=== PATIENT | male | born 1960 | race African-American/Black ===

== ENCOUNTER 2023-07-31 17:02 | Emergency (ER) | payer MEDICAID ==
[~2023-07-31] VITALS: Ht 177.8 cm; Wt 118.0 kg
[2023-07-31 17:05] VITALS: O2SAT 100
[2023-07-31 17:42] VITALS: BP 160/90; PULSE 82; RESP 20; TEMP 98.2
[2023-07-31 17:43] LABS: BASOPHILS % 0.5 % (0.0-2.0); DIFFERENTIAL COMMENT 0; EOSINOPHILS % 2.9 % (0.0-5.0); HEMATOCRIT. 29.2 % (42.0-52.0); HEMOGLOBIN. 9.7 g/dL (14.0-18.0); LYMPHOCYTES % 25.2 % (20.0-50.0); MEAN CORPUSCULAR HEMOGLOBIN 23.5 pg (28.0-32.0); MEAN CORPUSCULAR HGB CONC 33.2 g/dL (31.0-37.0); MEAN CORPUSCULAR VOLUME 70.7 fL (80.0-94.0); MONOCYTES % 9.7 % (2.0-8.0); NEUTROPHILS % 61.7 % (40.0-76.0); PLATELET 255 x1000/uL (130-400); RED BLOOD CELL COUNT 4.14 mill/uL (4.7-6.1); RED CELL DISTRIBUTION WIDTH 16.8 % (11.6-14.6)
[2023-07-31 17:54] LABS: INR 0.9; PROTHROMBIN TIME 10.4 sec (9.6-11.0)
[2023-07-31 18:06] LABS: CARBON DIOXIDE 30 mEq/L (21-32); CHLORIDE 101 mEq/L (98-107); POTASSIUM 3.8 mEq/L (3.5-5.1); SODIUM 136 mEq/L (136-145)
[2023-07-31 18:11] LABS: CREATININE 1.1 mg/dL (0.6-1.3)
[2023-07-31 18:12] LABS: GLUCOSE 260 mg/dL (70-105); UREA NITROGEN BLOOD 13 mg/dL (9-23)
[2023-07-31 18:16] LABS: ETHANOL BLOOD < 10 mg/dL (<10)
[2023-07-31] MEDS ORDERED: ASPIRIN 325MG EC TABLET PO ONE (19:00)
[2023-07-31] MEDS ORDERED: IOHEXOL-350 100 ML BOTTLE ONE (20:40)
[2023-07-31] MEDS ORDERED: GUAIFENESIN 200MG/10ML SUGAR FREE UDC PO PRN (22:15)
[2023-07-31] MEDS ORDERED: IPRATROPIUM/ALBUTEROL 0.5-3(2.5)MG/3ML NEB HHN PRN (22:15)
[2023-07-31] MEDS ORDERED: DOCUSATE SODIUM 100MG CAPSULE PO PRN (22:15)
[2023-07-31] MEDS ORDERED: ACETAMINOPHEN 325MG TABLET PO PRN (22:15)
[2023-07-31] MEDS ORDERED: MAGNESIUM/ALUMINUM HYDROXIDE/SIMETHICONE 30ML UDC PO PRN (22:15)
== END 2023-07-31 21:30 | disposition left against medical advice (07) ==
LOC: ER 17:02 → EDBEDREQTM 19:09 → EDBEDREQ 19:09 → ER 21:30
DX: I63.9 Cerebral infarction, unspecified (principal); E11.9 Type 2 diabetes mellitus without complications; I10 Essential (primary) hypertension; F12.10 Cannabis abuse, uncomplicated; F17.210 Nicotine dependence, cigarettes, uncomplicated
CPT/HCPCS: 80048; 80320; 82962; 85025; 85610; 85730; 36415; 71045; 70496; 70498; 70450; 93005; 99291; Q9967; G0480

== ENCOUNTER 2023-08-01 10:27 | Inpatient (IN) | payer MEDICAID ==
[~2023-08-01] VITALS: Ht 152.4 cm; Wt 72.1 kg
[2023-08-01] MEDS ORDERED: CLOPIDOGREL 75MG TABLET PO ONE (11:00)
[2023-08-01 11:08] LABS: BASOPHILS % 0.4 % (0.0-2.0); DIFFERENTIAL COMMENT 0; EOSINOPHILS % 1.8 % (0.0-5.0); HEMATOCRIT. 29.5 % (42.0-52.0); HEMOGLOBIN. 9.6 g/dL (14.0-18.0); LYMPHOCYTES % 14.8 % (20.0-50.0); MEAN CORPUSCULAR HEMOGLOBIN 23.4 pg (28.0-32.0); MEAN CORPUSCULAR HGB CONC 32.7 g/dL (31.0-37.0); MEAN CORPUSCULAR VOLUME 71.6 fL (80.0-94.0); MEAN PLATELET VOLUME 7.6 fl (7.4-10.4); MONOCYTES % 6.9 % (2.0-8.0); NEUTROPHILS % 76.1 % (40.0-76.0); PLATELET 228 x1000/uL (130-400); RED BLOOD CELL COUNT 4.12 mill/uL (4.7-6.1); RED CELL DISTRIBUTION WIDTH 16.7 % (11.6-14.6); WHITE BLOOD COUNT 7.1 x1000/uL (4.5-11.0)
[2023-08-01] MEDS: CLOPIDOGREL 75MG TABLET PO NR (11:18)
[2023-08-01] MEDS: ATORVASTATIN CALCIUM 40MG TABLET PO SCH (11:18)
[2023-08-01 11:29] LABS: CHLORIDE 101 mEq/L (98-107); POTASSIUM 3.9 mEq/L (3.5-5.1); SODIUM 133 mEq/L (136-145)
[2023-08-01 11:30] LABS: CALCIUM 8.8 mg/dL (8.7-10.4); CARBON DIOXIDE 23 mEq/L (21-32)
[2023-08-01 11:32] LABS: PROTHROMBIN TIME 10.8 sec (9.6-11.0)
[2023-08-01 11:35] LABS: CREATININE 0.9 mg/dL (0.6-1.3); GLUCOSE 243 mg/dL (70-105); UREA NITROGEN BLOOD 9 mg/dL (9-23)
[2023-08-01 11:38] LABS: ALANINE AMINOTRANSFERASE 27 IU/L (10-49); ASPARTATE AMINOTRANSFERASE 30 IU/L (<34); BILIRUBIN DIRECT 0.2 mg/dL (<=3.0); BILIRUBIN TOTAL 0.6 mg/dL (0.1-1.0); PROTEIN TOTAL 6.8 g/dL (6.0-8.3)
[2023-08-01 11:43] LABS: ETHANOL BLOOD < 10 mg/dL (<10); TROPONIN I HIGH SENSITIVITY < 4 ng/L (3.0-53)
[2023-08-01] MEDS ORDERED: ONDANSETRON HCL 4MG/2ML INJ IV PRN (14:45)
[2023-08-01] MEDS ORDERED: DEXTROSE 50% WATER 50ML SYRINGE IV PRN (14:45)
[2023-08-01] MEDS ORDERED: MAGNESIUM/ALUMINUM HYDROXIDE/SIMETHICONE 30ML UDC PO PRN (14:45)
[2023-08-01] MEDS ORDERED: DOCUSATE SODIUM 100MG CAPSULE PO PRN (14:45)
[2023-08-01] MEDS ORDERED: ACETAMINOPHEN 325MG TABLET PO PRN (14:45)
[2023-08-01] MEDS ORDERED: IPRATROPIUM/ALBUTEROL 0.5-3(2.5)MG/3ML NEB HHN PRN (14:45)
[2023-08-01] MEDS: BLOOD SUGAR DIAGNOSTIC STRIP TEST SCH (16:45)
[2023-08-01] MEDS: INSULIN LISPRO 100 UNITS/ML SUBCUT SCH (17:40)
[2023-08-01 18:45] VITALS: BP 161/86; PULSE 71; RESP 20; TEMP 98
[2023-08-01] MEDS: PANTOPRAZOLE SODIUM 40 MG/VIAL IV SCH (19:50)
[2023-08-01 20:00] VITALS: BP 151/83; PULSE 72; RESP 20; TEMP 99
[2023-08-02 03:33] LABS: CLARITY URINE CLEAR (CLEAR); COLOR URINE YELLOW (YELLOW); GLUCOSE URINE NEGATIVE (NEGATIVE); KETONES URINE TRACE (NEGATIVE); LEUKOCYTE ESTERASE URINE NEGATIVE (NEGATIVE); NITRITE URINE NEGATIVE (NEGATIVE); OCCULT BLOOD URINE NEGATIVE (NEGATIVE); PROTEIN URINE 1+ (NEGATIVE); SPECIFIC GRAVITY URINE 1.012 (1.005-1.030)
[2023-08-02 03:40] LABS: *AMPHETAMINES SCREEN URINE NEGATIVE (NEGATIVE); *BARBITURATES SCREEN URINE NEGATIVE (NEGATIVE); *BENZODIAZEPINES SCREEN URINE NEGATIVE (NEGATIVE); *COCAINE SCREEN URINE NEGATIVE (NEGATIVE); METHADONE URINE SCREEN NEGATIVE (NEGATIVE)
[2023-08-02 03:41] LABS: CANNABINOID URINE SCREEN PRESUMPTIVE POSITIVE (NEGATIVE); ECSTASY MDMA SCREEN URINE NEGATIVE (NEGATIVE); OPIATES URINE SCREEN NEGATIVE (NEGATIVE); PHENCYCLIDINE URINE SCREEN NEGATIVE (NEGATIVE)
[2023-08-02 03:53] LABS: BACTERIA URINE NONE SEEN; RBC URINE 0-2 /hpf (0-2); SQUAMOUS EPITHELIAL CELL URINE FEW /lpf (RARE/1+); WBC URINE 0-2 /hpf (0-2)
[2023-08-02 06:28] LABS: CHLORIDE 104 mEq/L (98-107); POTASSIUM 3.5 mEq/L (3.5-5.1); SODIUM 138 mEq/L (136-145)
[2023-08-02 06:29] LABS: CALCIUM 9.3 mg/dL (8.7-10.4); CARBON DIOXIDE 27 mEq/L (21-32)
[2023-08-02 06:34] LABS: GLUCOSE 135 mg/dL (70-105); UREA NITROGEN BLOOD 9 mg/dL (9-23)
[2023-08-02 06:40] LABS: BASOPHILS % 0.5 % (0.0-2.0); DIFFERENTIAL COMMENT 0; EOSINOPHILS % 2.6 % (0.0-5.0); HEMOGLOBIN. 9.4 g/dL (14.0-18.0); LYMPHOCYTES % 21.9 % (20.0-50.0); MEAN CORPUSCULAR HGB CONC 32.3 g/dL (31.0-37.0); MONOCYTES % 8.2 % (2.0-8.0); NEUTROPHILS % 66.8 % (40.0-76.0); PLATELET 240 x1000/uL (130-400); RED BLOOD CELL COUNT 4.08 mill/uL (4.7-6.1); RED CELL DISTRIBUTION WIDTH 16.1 % (11.6-14.6)
[2023-08-02 08:00] VITALS: BP 152/72; PULSE 98; RESP 18; TEMP 98.6
[2023-08-02] MEDS: ACETAMINOPHEN 325MG TABLET PO PRN (10:03)
[2023-08-02 12:00] VITALS: BP 158/83; PULSE 64; RESP 18; TEMP 98.1
[2023-08-02 16:00] VITALS: BP 160/82; PULSE 75; RESP 18; TEMP 97.7
[2023-08-02 18:28] LABS: FOLIC ACID (FOLATE) SERUM > 20.00 ng/mL (>5.38); VITAMIN B12 SERUM 573 pg/mL (211-911)
[2023-08-02] MEDS: CLOPIDOGREL 75MG TABLET PO SCH (18:58)
[2023-08-02] MEDS: ASPIRIN 81MG TABLET PO SCH (18:58)
[2023-08-02 20:00] VITALS: BP 129/97; PULSE 70; RESP 18; TEMP 97.5
[2023-08-02] MEDS: ATORVASTATIN CALCIUM 40MG TABLET PO SCH (22:16)
[2023-08-03] VITALS: BP 135/80; PULSE 68; RESP 18; TEMP 97.9
[2023-08-03 07:20] LABS: BASOPHILS % 0.6 % (0.0-2.0); DIFFERENTIAL COMMENT 0; EOSINOPHILS % 3.8 % (0.0-5.0); HEMATOCRIT. 30.1 % (42.0-52.0); HEMOGLOBIN. 9.7 g/dL (14.0-18.0); LYMPHOCYTES % 26.4 % (20.0-50.0); MEAN CORPUSCULAR HEMOGLOBIN 22.9 pg (28.0-32.0); MEAN CORPUSCULAR HGB CONC 32.2 g/dL (31.0-37.0); MEAN CORPUSCULAR VOLUME 71.2 fL (80.0-94.0); MEAN PLATELET VOLUME 8.1 fl (7.4-10.4); MONOCYTES % 9.2 % (2.0-8.0); PLATELET 236 x1000/uL (130-400); RED BLOOD CELL COUNT 4.23 mill/uL (4.7-6.1); RED CELL DISTRIBUTION WIDTH 16.4 % (11.6-14.6); WHITE BLOOD COUNT 5.6 x1000/uL (4.5-11.0)
[2023-08-03 07:29] LABS: CHLORIDE 104 mEq/L (98-107); POTASSIUM 3.5 mEq/L (3.5-5.1); SODIUM 139 mEq/L (136-145)
[2023-08-03 07:30] LABS: CARBON DIOXIDE 26 mEq/L (21-32)
[2023-08-03 07:31] LABS: CALCIUM 9.5 mg/dL (8.7-10.4)
[2023-08-03 07:35] LABS: CREATININE 0.9 mg/dL (0.6-1.3)
[2023-08-03 07:36] LABS: GLUCOSE 139 mg/dL (70-105); UREA NITROGEN BLOOD 8 mg/dL (9-23)
[2023-08-03 08:00] VITALS: BP 131/79; PULSE 67; RESP 18; TEMP 99.9
[2023-08-03] MEDS: FAMOTIDINE 20MG/2ML VIAL IV SCH (09:01)
[2023-08-03] MEDS: INSULIN GLARGINE 100 UNITS/ML SUBCUT SCH (11:22)
[2023-08-03 12:00] VITALS: BP 152/90; PULSE 76; RESP 20; TEMP 98.6
[2023-08-03] MEDS: ENOXAPARIN 40MG/0.4ML SYR SUBCUT SCH (13:29)
[2023-08-03 16:00] VITALS: BP 160/97; PULSE 81; RESP 20; TEMP 99.1
[2023-08-03 20:00] VITALS: BP 141/93; PULSE 76; RESP 17; TEMP 97.8
[2023-08-04] VITALS: BP 128/70; PULSE 78; RESP 18; TEMP 97.9
[2023-08-04 04:00] VITALS: BP 155/89; PULSE 66; RESP 18; TEMP 97.5
[2023-08-04] MEDS: INSULIN LISPRO 100 UNITS/ML SUBCUT SCH (06:46)
[2023-08-04 07:35] LABS: BASOPHILS % 0.7 % (0.0-2.0); DIFFERENTIAL COMMENT 0; EOSINOPHILS % 2.9 % (0.0-5.0); HEMATOCRIT. 29.2 % (42.0-52.0); HEMOGLOBIN. 9.4 g/dL (14.0-18.0); LYMPHOCYTES % 18.2 % (20.0-50.0); MEAN CORPUSCULAR HEMOGLOBIN 22.8 pg (28.0-32.0); MEAN CORPUSCULAR HGB CONC 32.3 g/dL (31.0-37.0); MEAN CORPUSCULAR VOLUME 70.5 fL (80.0-94.0); MEAN PLATELET VOLUME 8.2 fl (7.4-10.4); NEUTROPHILS % 68.2 % (40.0-76.0); PLATELET 238 x1000/uL (130-400); RED BLOOD CELL COUNT 4.14 mill/uL (4.7-6.1); RED CELL DISTRIBUTION WIDTH 16.5 % (11.6-14.6); WHITE BLOOD COUNT 7.1 x1000/uL (4.5-11.0)
[2023-08-04 07:36] LABS: CHLORIDE 104 mEq/L (98-107); POTASSIUM 4.2 mEq/L (3.5-5.1); SODIUM 137 mEq/L (136-145)
[2023-08-04 07:37] LABS: CARBON DIOXIDE 28 mEq/L (21-32)
[2023-08-04 07:38] LABS: CALCIUM 9.4 mg/dL (8.7-10.4)
[2023-08-04 07:42] LABS: CREATININE 0.9 mg/dL (0.6-1.3)
[2023-08-04 07:43] LABS: GLUCOSE 225 mg/dL (70-105); UREA NITROGEN BLOOD 10 mg/dL (9-23)
[2023-08-04 08:00] VITALS: BP 138/76; PULSE 79; RESP 19; TEMP 97.6
[2023-08-04 12:00] VITALS: BP 152/83; PULSE 60; RESP 18; TEMP 96.9
[2023-08-04 16:00] VITALS: BP 140/87; PULSE 70; RESP 18; TEMP 97.7
[2023-08-04 20:00] VITALS: BP 161/102; PULSE 70; RESP 18; TEMP 98.6
[2023-08-05] VITALS: BP 157/86; PULSE 60; RESP 19; TEMP 98.6
[2023-08-05 04:00] VITALS: BP 167/92; PULSE 64; RESP 19; TEMP 98.7
[2023-08-05] MEDS ORDERED: CLONIDINE 0.1MG TABLET PO PRN (05:45)
[2023-08-05 06:47] VITALS: BP 133/68; RESP 18
[2023-08-05 08:00] VITALS: BP 150/84; PULSE 64; RESP 18; TEMP 97
[2023-08-05] MEDS: AMLODIPINE 2.5MG TABLET PO SCH (08:12)
[2023-08-05] MEDS ORDERED: ASPI-1160 PO (10:55)
[2023-08-05] MEDS ORDERED: LANTUSUD SUBCUT (10:55)
[2023-08-05] MEDS ORDERED: AMLO5TAB88 PO ×2 (10:55→15:27)
[2023-08-05] MEDS ORDERED: LIP40 PO (10:55)
[2023-08-05] MEDS ORDERED: CLOP-31 PO (10:55)
[2023-08-05 12:00] VITALS: BP 154/90; PULSE 66; RESP 18; TEMP 98.2
[2023-08-05] MEDS ORDERED: KETOROLAC 15MG/ML VIAL IV PRN (15:00)
[2023-08-05] MEDS ORDERED: DICL100G58 TP (15:22)
[2023-08-05] MEDS ORDERED: TOPUD PO (15:22)
[2023-08-05] MEDS ORDERED: EMPA25TA PO (15:25)
[2023-08-05] MEDS ORDERED: LOSA100T33 PO (15:25)
[2023-08-05 15:35] VITALS: BP 148/89; PULSE 65; RESP 18; TEMP 98; O2SAT 99
[2023-08-05] MEDS: LIDOCAINE 5% PATCH TOP SCH (15:35)
[2023-08-05] MEDS ORDERED: LOSA50TA41 PO (15:37)
[2023-08-06] MEDS ORDERED: AMLODIPINE 5MG TABLET PO SCH (09:00)
== END 2023-08-05 16:55 | disposition home health service (06) | DRG 45 ==
LOC: ER 10:27 → 5WST 12:56 → EDBEDREQTM 13:01 → EDBEDREQ 13:01 → 8WST 16:47 → UNDODISIN 17:56
PROVIDERS: ADMIT Internal Medicine; ATTEND Internal Medicine
DX: I63.89 Other cerebral infarction (principal); E87.1 Hypo-osmolality and hyponatremia; G81.91 Hemiplegia, unspecified affecting right dominant side; E11.65 Type 2 diabetes mellitus with hyperglycemia; D50.9 Iron deficiency anemia, unspecified; E66.9 Obesity, unspecified; F17.200 Nicotine dependence, unspecified, uncomplicated; I65.23 Occlusion and stenosis of bilateral carotid arteries; R29.707 NIHSS score 7; I10 Essential (primary) hypertension; R13.10 Dysphagia, unspecified; R53.81 Other malaise; R47.1 Dysarthria and anarthria; F19.10 Other psychoactive substance abuse, uncomplicated; Z68.31 Body mass index [BMI] 31.0-31.9, adult; Z79.02 Long term (current) use of antithrombotics/antiplatelets; Z79.4 Long term (current) use of insulin; Z79.82 Long term (current) use of aspirin; Z91.199 Patient's noncompliance with other medical treatment and regimen due to unspecified reason; Z82.49 Family history of ischemic heart disease and other diseases of the circulatory system; Z71.6 Tobacco abuse counseling
CPT/HCPCS: 36415; 70551; 71045; 73560; 80048; 80061; 80076; 80305; 80320; 81003; 82607; 82746; 82962; 83036; 83880; 84484; 85025; 92523; 93005; 93306; 93970; 97110; 97112; 97162; 97166; 97530; 97535; 99291; C9113; J1650; J1815; J3490; G0480